=== PATIENT | female | born 1980 | race Caucasian/White ===

== ENCOUNTER 2017-04-10 19:14 | Emergency (ER) | payer OTHER ==
[~2017-04-10] VITALS: Ht 157.5 cm; Wt 52.6 kg
[~2017-04-10 19:14] MED LIST: BENTYL20 MG PO; FIORICET 50-301 EACH PO; SYNTHROID75 MCG PO; VOLTAREN75 MG PO
[2017-04-11] MEDS ORDERED: TYLENOL WITH C1 EACH PO (01:49)
[2017-04-11 02:39] VITALS: BP 116/68
== END 2017-04-11 02:50 | disposition home or self-care (01) ==
LOC: EME 19:14
DX: S02.31XA Fracture of orbital floor, right side, initial encounter for closed fracture (principal); S62.662A Nondisplaced fracture of distal phalanx of right middle finger, initial encounter for closed fracture; S62.635A Displaced fracture of distal phalanx of left ring finger, initial encounter for closed fracture; S63.295A Dislocation of distal interphalangeal joint of left ring finger, initial encounter; S10.91XA Abrasion of unspecified part of neck, initial encounter; S00.83XA Contusion of other part of head, initial encounter; S05.12XA Contusion of eyeball and orbital tissues, left eye, initial encounter; S05.11XA Contusion of eyeball and orbital tissues, right eye, initial encounter; S40.022A Contusion of left upper arm, initial encounter; S40.021A Contusion of right upper arm, initial encounter; H11.33 Conjunctival hemorrhage, bilateral; F10.99 Alcohol use, unspecified with unspecified alcohol-induced disorder; R41.3 Other amnesia; Y04.0XXA Assault by unarmed brawl or fight, initial encounter; K08.409 Partial loss of teeth, unspecified cause, unspecified class; E07.9 Disorder of thyroid, unspecified; F17.200 Nicotine dependence, unspecified, uncomplicated
CPT/HCPCS: 70450; 70486; 73130; 73140; 99281; 99284

== ENCOUNTER 2017-06-08 01:20 | Emergency (ER) | payer OTHER ==
[~2017-06-08] VITALS: Ht 157.5 cm; Wt 54.0 kg
[~2017-06-08 01:20] MED LIST changes: +CYCLOBENZAPRINE10 MG PO; +TYLENOL WITH C1 EACH PO
[2017-06-08 03:00] LABS: BASOPHIL COUNT 0.1 K/uL (0-0.1); EOSINOPHIL (%) 1.2 % (0-5); EOSINOPHIL COUNT 0.1 K/uL (0-0.3); HEMATOCRIT 44.9 % (36.0-46.0); IMMATURE GRANULOCYTE (%) 1.2 % (0.0-0.7); IMMATURE GRANULOCYTE COUNT 0.1 K/uL; INSTRUMENT ABS NEUTROPHIL CT 4.4 K/uL; MCHC 33.2 G/DL (30.0-36.0); MCV 93.3 FL (83-99); MEAN PLAT.VOLUME 9.9 uM^3 (9.5-12.4); MONOCYTE (%) 4.1 % (3-12); MONOCYTE COUNT 0.4 K/uL (0-0.8); NEUTROPHIL COUNT 4.4 K/uL (1.8-6.4); PLATELET COUNT 492 K/uL (156-360); RBC DIS.WIDTH-CV 13.1 % (11.8-14.6); RED BLOOD COUNT 4.81 M/uL (3.80-5.20); WHITE BLOOD COUNT 9.1 K/uL (4.1-10.2)
[2017-06-08 03:04] LABS: CHLORIDE 109 mEq/L (99-109); POTASSIUM 3.8 mEq/L (3.7-5.4); SODIUM 144 mEq/L (136-147)
[2017-06-08 03:05] LABS: MAGNESIUM 2.3 mg/dL (1.3-2.7)
[2017-06-08 03:07] LABS: GLUCOSE 100 mg/dL (70-99); PROTHROMBIN TIME 11.6 SEC (10.2-12.9)
[2017-06-08 03:08] LABS: ANION GAP 13 MEQ/L (2-14)
[2017-06-08 03:09] LABS: PTT 33.9 SEC (25-37)
[2017-06-08 03:10] LABS: GFR ESTIMATE (CALCULATED) > 59 mL/min/; SERUM ETHYL ALCOHOL 311 mg/dL
[2017-06-08 03:11] LABS: UREA NITROGEN (BUN) 5 mg/dL (9-23)
[2017-06-08 03:19] LABS: QUANTITATIVE HCG < 4.0 MIU/ML
[2017-06-08 06:01] VITALS: BP 100/63
== END 2017-06-08 06:01 | disposition left against medical advice (07) ==
LOC: EME 01:20
PROVIDERS: Emergency Medicine
DX: F10.129 Alcohol abuse with intoxication, unspecified (principal); Y90.8 Blood alcohol level of 240 mg/100 ml or more; W10.9XXA Fall (on) (from) unspecified stairs and steps, initial encounter; E07.9 Disorder of thyroid, unspecified; F17.200 Nicotine dependence, unspecified, uncomplicated; Z88.1 Allergy status to other antibiotic agents; Z88.5 Allergy status to narcotic agent; Z88.6 Allergy status to analgesic agent
CPT/HCPCS: 70450; 72125; 80048; 83735; 84702; 85025; 85610; 85730; 99281; 99285; G0480

== ENCOUNTER 2017-08-01 15:53 | Emergency (ER) | payer OTHER ==
[~2017-08-01] VITALS: Ht 157.5 cm; Wt 51.7 kg
[2017-08-01 16:51] LABS: HEMATOCRIT 43.5 % (36.0-46.0); HEMOGLOBIN 14.9 G/DL (11.9-15.5); MCH 31.4 PG (29.0-34.0); MCHC 34.3 G/DL (30.0-36.0); MCV 91.6 FL (83-99); PLATELET COUNT 188 K/uL (156-360); RBC DIS.WIDTH-CV 13.4 % (11.8-14.6); RBC DIS.WIDTH-SD 45.5 % (39-53); RED BLOOD COUNT 4.75 M/uL (3.80-5.20); WHITE BLOOD COUNT 8.3 K/uL (4.1-10.2)
[2017-08-01 16:57] LABS: ALBUMIN 4.1 g/dL (3.2-4.8)
[2017-08-01 16:58] LABS: CHLORIDE 96 mEq/L (99-109); POTASSIUM 3.6 mEq/L (3.7-5.4); SODIUM 137 mEq/L (136-147)
[2017-08-01 17:00] LABS: GLUCOSE 94 mg/dL (70-99); TOTAL PROTEIN 7.9 g/dL (6.4-8.3)
[2017-08-01 17:02] LABS: TOTAL BILIRUBIN 0.7 mg/dL (0.0-1.0)
[2017-08-01 17:03] LABS: ALKALINE PHOSPHATASE 100 IU/L (3-129); CREATININE 0.8 mg/dL (0.6-1.3); GFR ESTIMATE (CALCULATED) > 59 mL/min/
[2017-08-01 17:05] LABS: AST (GOT) 89 IU/L (2-34); UREA NITROGEN (BUN) 18 mg/dL (9-23)
[2017-08-01 17:06] LABS: ALT (GPT) 67 IU/L (3-49)
[2017-08-01 17:07] LABS: LIPASE 43 U/L (1.0-51.0)
[2017-08-01 17:20] LABS: QUANTITATIVE HCG < 4.0 MIU/ML
[2017-08-01 17:59] LABS: APPEARANCE CLOUDY ((CLEAR)); BILIRUBIN SMALL; BLOOD NEGATIVE; COLOR AMBER ((YELLOW)); GLUCOSE (STRIP) NEGATIVE; KETONES 5; LEUKOCYTES SMALL; NITRITE POSITIVE; PROTEIN (STRIP) 30; SPECIFIC GRAVITY 1.026 (1.000-1.030)
[2017-08-01 18:48] LABS: BACTERIA 3+ /HPF; EPITHELIAL CELLS 1+ /HPF; MUCUS 2+ /LPF; RED BLOOD CELLS 0-5 /HPF (0-5); UCUL ADDED? YES
[2017-08-01] MEDS ORDERED: CIPRO500 MG PO (19:29)
[2017-08-01] MEDS ORDERED: OMEPRAZOLE10 M1 PO (19:31)
[2017-08-01 19:40] VITALS: BP 134/88
== END 2017-08-01 19:41 | disposition home or self-care (01) ==
LOC: EME 15:53
DX: N39.0 Urinary tract infection, site not specified (principal); R42 Dizziness and giddiness; R00.0 Tachycardia, unspecified; R74.8 Abnormal levels of other serum enzymes; E03.9 Hypothyroidism, unspecified; Z88.1 Allergy status to other antibiotic agents; F17.200 Nicotine dependence, unspecified, uncomplicated
CPT/HCPCS: 80053; 81003; 83690; 84702; 85027; 87077; 87086; 87186; J7030

== ENCOUNTER 2017-08-25 23:19 | Emergency (ER) | payer OTHER ==
[~2017-08-25] VITALS: Ht 157.5 cm; Wt 65.0 kg
[~2017-08-25 23:19] MED LIST changes: +CIPRO500 MG PO; +OMEPRAZOLE10 M1 PO
[2017-08-26 01:18] LABS: HEMATOCRIT 44.5 % (36.0-46.0); HEMOGLOBIN 15.1 G/DL (11.9-15.5); MCH 31.2 PG (29.0-34.0); MCHC 33.9 G/DL (30.0-36.0); MCV 91.9 FL (83-99); RBC DIS.WIDTH-CV 13.7 % (11.8-14.6); RBC DIS.WIDTH-SD 46.6 % (39-53); RED BLOOD COUNT 4.84 M/uL (3.80-5.20); WHITE BLOOD COUNT 9.2 K/uL (4.1-10.2)
[2017-08-26 01:19] LABS: PLATELET COUNT 292 K/uL (156-360)
[2017-08-26 01:51] LABS: GLUCOSE 99 mg/dL (70-99); UREA NITROGEN (BUN) 6 mg/dL (9-23)
[2017-08-26 01:52] LABS: ALKALINE PHOSPHATASE 64 IU/L (3-129); ALT (GPT) 15 IU/L (3-49); AST (GOT) 20 IU/L (2-34); CHLORIDE 109 MEQ/L (99-109); POTASSIUM 3.9 MEQ/L (3.7-5.4); SERUM ETHYL ALCOHOL 295 mg/dL; SODIUM 140 MEQ/L (136-147); TOTAL BILIRUBIN 0.2 MG/DL (0.0-1.0); TOTAL PROTEIN 7.1 G/DL (6.4-8.3)
[2017-08-26 02:27] LABS: CREATININE 0.6 MG/DL (0.6-1.3); GFR ESTIMATE (CALCULATED) > 59 mL/min/
[2017-08-26 05:40] VITALS: BP 117/67
== END 2017-08-26 05:41 | disposition home or self-care (01) ==
LOC: EME → EDBD 23:19 → EME 08-26 05:41
PROVIDERS: Emergency Medicine
DX: S01.01XA Laceration without foreign body of scalp, initial encounter (principal); F10.129 Alcohol abuse with intoxication, unspecified; Y90.8 Blood alcohol level of 240 mg/100 ml or more; W22.09XA Striking against other stationary object, initial encounter; R56.9 Unspecified convulsions; F17.200 Nicotine dependence, unspecified, uncomplicated; Z88.5 Allergy status to narcotic agent; Z88.6 Allergy status to analgesic agent
CPT/HCPCS: 70450; 72125; 80053; 85027; 99281; 99285; G0480; J1630; J2250

== ENCOUNTER 2018-01-16 15:41 | Emergency (ER) | payer OTHER ==
[~2018-01-16] VITALS: Ht 157.5 cm; Wt 54.8 kg
[2018-01-16 16:51] LABS: HEMATOCRIT 41.4 % (36.0-46.0); HEMOGLOBIN 14.1 G/DL (11.9-15.5); MCH 31.6 PG (29.0-34.0); MCHC 34.1 G/DL (30.0-36.0); MCV 92.8 FL (83-99); PLATELET COUNT 245 K/uL (156-360); RBC DIS.WIDTH-CV 12.9 % (11.8-14.6); RBC DIS.WIDTH-SD 43.9 % (39-53); RED BLOOD COUNT 4.46 M/uL (3.80-5.20); WHITE BLOOD COUNT 11.5 K/uL (4.1-10.2)
[2018-01-16] MEDS ORDERED: VIBRAMYCIN100 MG PO (17:00)
[2018-01-16 17:04] LABS: CHLORIDE 104 mEq/L (99-109); POTASSIUM 3.6 mEq/L (3.7-5.4); SODIUM 140 mEq/L (136-147)
[2018-01-16 17:06] LABS: GLUCOSE 118 mg/dL (70-99)
[2018-01-16 17:08] LABS: SOURCE SWAB
[2018-01-16 17:09] LABS: SERUM ETHYL ALCOHOL < 10 mg/dL
[2018-01-16 17:10] LABS: CREATININE 0.8 mg/dL (0.6-1.3); GFR ESTIMATE (CALCULATED) > 59 mL/min/
[2018-01-16 17:11] LABS: UREA NITROGEN (BUN) 10 mg/dL (9-23)
[2018-01-16 17:12] LABS: APPEARANCE CLEAR ((CLEAR)); BILIRUBIN NEGATIVE; BLOOD MODERATE; COLOR YELLOW ((YELLOW)); GLUCOSE (STRIP) NEGATIVE; KETONES 5; LEUKOCYTES NEGATIVE; NITRITE NEGATIVE; PROTEIN (STRIP) NEGATIVE; SPECIFIC GRAVITY 1.006 (1.000-1.030); UROBILINOGEN 0.2 MG/DL (0.2-1.0)
[2018-01-16 17:19] LABS: QUANTITATIVE HCG < 4.0 MIU/ML
[2018-01-16 17:22] LABS: BACTERIA RARE /HPF; EPITHELIAL CELLS 1+ /HPF; MUCUS TRACE /LPF; RED BLOOD CELLS 0-5 /HPF (0-5); UCUL ADDED? NO; WHITE BLOOD CELLS 0-5 /HPF (0-5)
[2018-01-16 17:42] LABS: AMPHETAMINE NEGATIVE (500 ng/mL); BARBITURATES NEGATIVE (200 ng/mL); BENZODIAZEPINES NEGATIVE (150 ng/mL); BUPRENORPHINE NEGATIVE (10 ng/mL); COCAINE NEGATIVE (150 ng/mL); METHADONE NEGATIVE (200 ng/mL); METHAMPHETAMINE NEGATIVE (500 ng/mL); OPIATES (MORPHINE) NEGATIVE (100 ng/mL); OXYCODONE NEGATIVE (100 ng/mL); PHENCYCLIDINE NEGATIVE (25 ng/mL); PROPOXYPHENE NEGATIVE (300 ng/mL); THC CANNABINOIDS NEGATIVE (50 ng/mL); TRICYCLIC ANTIDEPRESSANTS NEGATIVE (300 ng/mL)
[2018-01-16 19:55] VITALS: BP 138/84
[2018-01-17 10:15] LABS: TREPONEMA ANTIBODY NEGATIVE (NEGATIVE)
[2018-01-17 11:07] LABS: HEPATITIS B SURFACE ANTIGEN Nonreactive; HEPATITIS C ANTIBODY Nonreactive
[2018-01-17 11:08] LABS: ANTI-HEPATITIS A VIRUS (IGM) Nonreactive
[2018-01-17 11:09] LABS: ANTI-HEPATITIS B CORE (IGM) Nonreactive
[2018-01-17 11:10] LABS: HIV-1/2 AB/AG COMBO Nonreactive
== END 2018-01-16 19:57 | disposition home or self-care (01) ==
LOC: EME 15:41
PROVIDERS: Nurse Practitioner Family
DX: T76.21XA Adult sexual abuse, suspected, initial encounter (principal); K58.9 Irritable bowel syndrome, unspecified; Z86.69 Personal history of other diseases of the nervous system and sense organs; F17.200 Nicotine dependence, unspecified, uncomplicated; Z59.0 Homelessness; Z88.6 Allergy status to analgesic agent; Z88.5 Allergy status to narcotic agent; Z88.1 Allergy status to other antibiotic agents
CPT/HCPCS: 80048; 80074; 81003; 84702; 85027; 86780; 87389; 87491; 87591; 99281; 99285; G0480; J0696

== ENCOUNTER 2018-02-11 08:49 | Emergency (ER) | payer OTHER ==
[~2018-02-11] VITALS: Ht 157.5 cm; Wt 56.7 kg
[~2018-02-11 08:49] MED LIST changes: +VIBRAMYCIN100 MG PO
[2018-02-11 09:24] LABS: HEMATOCRIT 39.1 % (36.0-46.0); HEMOGLOBIN 13.6 G/DL (11.9-15.5); MCH 31.2 PG (29.0-34.0); MCHC 34.8 G/DL (30.0-36.0); MCV 89.7 FL (83-99); PLATELET COUNT 281 K/uL (156-360); RBC DIS.WIDTH-CV 12.7 % (11.8-14.6); RED BLOOD COUNT 4.36 M/uL (3.80-5.20); WHITE BLOOD COUNT 10.6 K/uL (4.1-10.2)
[2018-02-11 09:33] LABS: CHLORIDE 103 mEq/L (99-109); POTASSIUM 3.6 mEq/L (3.7-5.4); SODIUM 140 mEq/L (136-147)
[2018-02-11 09:35] LABS: GLUCOSE 113 mg/dL (70-99)
[2018-02-11 09:39] LABS: CREATININE 0.8 mg/dL (0.6-1.3); GFR ESTIMATE (CALCULATED) > 59 mL/min/
[2018-02-11 09:40] LABS: UREA NITROGEN (BUN) 9 mg/dL (9-23)
[2018-02-11] MEDS ORDERED: PREDNISONE50 MG PO (10:16)
[2018-02-11 10:51] VITALS: BP 135/85
== END 2018-02-11 10:53 | disposition home or self-care (01) ==
LOC: EME 08:49
PROVIDERS: Emergency Medicine
DX: T78.40XA Allergy, unspecified, initial encounter (principal); H11.32 Conjunctival hemorrhage, left eye; S09.90XA Unspecified injury of head, initial encounter; X58.XXXA Exposure to other specified factors, initial encounter; Z86.69 Personal history of other diseases of the nervous system and sense organs; F17.200 Nicotine dependence, unspecified, uncomplicated; K58.9 Irritable bowel syndrome, unspecified; Z88.6 Allergy status to analgesic agent; Z88.5 Allergy status to narcotic agent; Z88.1 Allergy status to other antibiotic agents
CPT/HCPCS: 70450; 80048; 85027; 93005; 99281; 99285; J1200; J2930; S0028